=== PATIENT | female | born 1970 | race African-American/Black ===

== ENCOUNTER 2019-05-10 18:16 | Inpatient (IN) | payer OTHER ==
[~2019-05-10] VITALS: Ht 165.1 cm; Wt 95.7 kg
[2019-05-10] MEDS ORDERED: DILTIAZEM HCL 5MG/ML 5ML VIAL IV ONE ×2 (19:00→19:30)
[2019-05-10] MEDS ORDERED: ASPIRIN 81MG TABLET PO ONE (19:00)
[2019-05-10] MEDS ORDERED: DILTIAZEM HCL 60MG TABLET PO ONE (19:00)
[2019-05-10 19:15] LABS: BASOPHILS % 0.8 % (0.0-2.0); EOSINOPHILS % 2.5 % (0.0-5.0); HEMATOCRIT. 49.3 % (36.0-48.0); HEMOGLOBIN. 17.4 g/dL (12.0-16.0); LYMPHOCYTES % 14.4 % (20.0-50.0); MEAN CORPUSCULAR HEMOGLOBIN 29.3 pg (28.0-32.0); MEAN PLATELET VOLUME 8.5 fl (7.4-10.4); NEUTROPHILS % 76.3 % (40.0-76.0); PLATELET 322 x1000/uL (130-400); RED BLOOD CELL COUNT 5.94 mill/uL (4.2-5.4); RED CELL DISTRIBUTION WIDTH 13.6 % (11.6-14.6)
[2019-05-10 19:20] LABS: HCG SCREEN NEGATIVE
[2019-05-10 19:23] LABS: CHLORIDE 108 mEq/L (98-107); INR 0.9; PARTIAL THROMBOPLASTIN TIME 28.9 sec (23.4-31.0); PROTHROMBIN TIME 9.8 sec (9.6-11.0)
[2019-05-10 19:26] LABS: ETHANOL BLOOD < 10 mg/dL
[2019-05-10] MEDS ORDERED: DILTIAZEM HCL 125 MG in DEXT 5% WATER 100 ML IV ONE (20:00)
[2019-05-10 20:12] LABS: CLARITY URINE CLEAR (CLEAR); COLOR URINE YELLOW (YELLOW); KETONES URINE NEGATIVE (NEGATIVE); LEUKOCYTE ESTERASE URINE NEGATIVE (NEGATIVE); NITRITE URINE NEGATIVE (NEGATIVE); OCCULT BLOOD URINE 1+ (NEGATIVE); PH URINE 7.5 (4.5-8.0); PROTEIN URINE TRACE (NEGATIVE); SPECIFIC GRAVITY URINE 1.003 (1.005-1.030); UROBILINOGEN URINE 0.2 E.U./dL (0.2-1.0)
[2019-05-10] MEDS ORDERED: DILTIAZEM HCL 125 MG in DEXT 5% WATER 100 ML IV SCH (20:15)
[2019-05-10 20:30] LABS: *AMPHETAMINES SCREEN URINE NEGATIVE (NEGATIVE); *BARBITURATES SCREEN URINE NEGATIVE (NEGATIVE); CANNABINOID URINE SCREEN NEGATIVE (NEGATIVE); OPIATES URINE SCREEN NEGATIVE (NEGATIVE); PHENCYCLIDINE URINE SCREEN NEGATIVE (NEGATIVE)
[2019-05-10 20:31] LABS: *BENZODIAZEPINES SCREEN URINE NEGATIVE (NEGATIVE); *COCAINE SCREEN URINE NEGATIVE (NEGATIVE); METHADONE URINE SCREEN NEGATIVE (NEGATIVE)
[2019-05-10] MEDS ORDERED: SODIUM CHLORIDE 0.9% 500 ML IV ONE (22:05)
[2019-05-10] MEDS ORDERED: ONDANSETRON HCL 4MG/2ML INJ IV PRN (22:45)
[2019-05-10] MEDS ORDERED: MAGNESIUM/ALUMINUM HYDROXIDE/SIMETHICONE 30ML UDC PO PRN (22:45)
[2019-05-10] MEDS ORDERED: POTASSIUM CHLORIDE 20MEQ TABLET SR PO NR (22:45)
[2019-05-10] MEDS ORDERED: CLONIDINE 0.1MG TABLET PO PRN (22:45)
[2019-05-10] MEDS ORDERED: ACETAMINOPHEN 325MG TABLET PO PRN (22:45)
[2019-05-10] MEDS ORDERED: DIPHENHYDRAMINE 50MG/ML VIAL IV PRN (22:45)
[2019-05-10] MEDS ORDERED: DILTIAZEM HCL 125 MG in DEXT 5% WATER 100 ML IV PRN (22:45)
[2019-05-10 23:00] VITALS: BP 114/91
[2019-05-10 23:23] LABS: T4 FREE 0.98 ng/dL (0.76-1.46)
[2019-05-11] VITALS (10 sets, daily range): BP systolic 96–123; BP diastolic 58–82
[2019-05-11] MEDS: DILTIAZEM HCL 30MG TABLET PO SCH ×4 (00:33→18:17)
[2019-05-11] MEDS ORDERED: LEVO75TA7 PO (01:41)
[2019-05-11] MEDS ORDERED: AMLO5TAB88 PO (01:41)
[2019-05-11] MEDS: DEXT 5%/0.45% NACL KCL 20MEQ/L 1,000 ML IV SCH ×2 (01:52→11:00)
[2019-05-11 08:30] LABS: BASOPHILS % 0.6 % (0.0-2.0); EOSINOPHILS % 2.1 % (0.0-5.0); HEMATOCRIT. 46.7 % (36.0-48.0); HEMOGLOBIN. 16.5 g/dL (12.0-16.0); LYMPHOCYTES % 16.3 % (20.0-50.0); MEAN CORPUSCULAR HEMOGLOBIN 29.4 pg (28.0-32.0); MEAN CORPUSCULAR VOLUME 83.3 fL (81.0-99.0); MEAN PLATELET VOLUME 8.7 fl (7.4-10.4); MONOCYTES % 5.7 % (2.0-8.0); NEUTROPHILS % 75.3 % (40.0-76.0); PLATELET 299 x1000/uL (130-400); RED CELL DISTRIBUTION WIDTH 13.1 % (11.6-14.6)
[2019-05-11 08:48] LABS: CHLORIDE 110 mEq/L (98-107)
[2019-05-11 08:58] LABS: PHOSPHORUS 2.7 mg/dL (2.5-4.9)
[2019-05-11] MEDS: ENOXAPARIN 30MG/0.3ML SYR SUBCUT SCH ×3 (09:00→21:13)
[2019-05-11] MEDS: POTASSIUM CHLORIDE 20MEQ TABLET SR PO SCH (09:07)
[2019-05-11] MEDS ORDERED: DILTIAZEM HCL 125 MG in DEXT 5% WATER 100 ML IV PRN (14:30)
[2019-05-11] MEDS: METOPROLOL TARTRATE 25MG TABLET PO SCH ×2 (18:16→21:13)
[2019-05-11] MEDS: LEVOTHYROXINE SODIUM 75MCG TABLET PO SCH (21:45)
[2019-05-12] VITALS (8 sets, daily range): BP systolic 107–121; BP diastolic 58–77
[2019-05-12] MEDS: DEXT 5%/0.45% NACL KCL 20MEQ/L 1,000 ML IV SCH ×2 (02:30→07:00)
[2019-05-12] MEDS: DILTIAZEM HCL 30MG TABLET PO SCH ×3 (06:00→12:15)
[2019-05-12 07:16] LABS: BASOPHILS % 0.6 % (0.0-2.0); EOSINOPHILS % 3.2 % (0.0-5.0); HEMATOCRIT. 43.1 % (36.0-48.0); LYMPHOCYTES % 20.8 % (20.0-50.0); MEAN CORPUSCULAR HEMOGLOBIN 29.5 pg (28.0-32.0); MEAN CORPUSCULAR VOLUME 84.6 fL (81.0-99.0); MONOCYTES % 6.7 % (2.0-8.0); NEUTROPHILS % 68.7 % (40.0-76.0); PLATELET 255 x1000/uL (130-400); RED BLOOD CELL COUNT 5.09 mill/uL (4.2-5.4); RED CELL DISTRIBUTION WIDTH 13.4 % (11.6-14.6)
[2019-05-12 07:26] LABS: CHLORIDE 108 mEq/L (98-107)
[2019-05-12] MEDS: POTASSIUM CHLORIDE 20MEQ TABLET SR PO SCH (08:34)
[2019-05-12] MEDS: LEVOTHYROXINE SODIUM 75MCG TABLET PO SCH (08:34)
[2019-05-12] MEDS: METOPROLOL TARTRATE 25MG TABLET PO SCH (08:35)
[2019-05-12] MEDS: ENOXAPARIN 30MG/0.3ML SYR SUBCUT SCH (08:35)
[2019-05-12] MEDS ORDERED: POTASSIUM CHLORIDE 20MEQ TABLET SR PO SCH (13:15)
[2019-05-12] MEDS ORDERED: POTASSIUM CHLORIDE INJ 40 MEQ in DEXT 5% WATER 250 ML IV SCH (15:00)
== END 2019-05-12 18:52 | disposition home or self-care (01) | DRG 310 ==
LOC: ER 20:34 → EDBEDREQSVC 20:45 → EDBEDREQ 20:45 → EDBEDREQTM 20:45 → EDBEDREQ 20:49 → ENRESERV 20:56 → 5EST 22:58
PROVIDERS: ADMIT Internal Medicine; ATTEND Internal Medicine
PROC: 05H633Z Insertion of Infusion Device into Left Subclavian Vein, Percutaneous Approach (ICD-10-PCS; principal; 2019-05-11)
PROC: B547ZZA Ultrasonography of Left Subclavian Vein, Guidance (ICD-10-PCS; 2019-05-11)
DX: I47.1 Supraventricular tachycardia (principal); E03.9 Hypothyroidism, unspecified; E87.6 Hypokalemia; H91.90 Unspecified hearing loss, unspecified ear; I11.9 Hypertensive heart disease without heart failure; I48.0 Paroxysmal atrial fibrillation; I34.0 Nonrheumatic mitral (valve) insufficiency; H53.8 Other visual disturbances; H53.149 Visual discomfort, unspecified; Z90.49 Acquired absence of other specified parts of digestive tract; Z88.0 Allergy status to penicillin
CPT/HCPCS: 36415; 71045; 76937; 80048; 80305; 80320; 81003; 83735; 83880; 84100; 84439; 84443; 84484; 84703; 93005; 93306; 93970; 99285; C1725; J1650; J3480; J3490; J7040; J7060; G0480